=== PATIENT | male | born 1975 | race Caucasian/White ===

== ENCOUNTER → 2019-07-11 | Outpatient (CLI) | payer BC | LOC: LAB 07:53 | PROVIDERS: ATTEND Registered Nurse | DX: Z01.818 Encounter for other preprocedural examination (principal); Z11.59 Encounter for screening for other viral diseases | CPT/HCPCS: C9803; U0003 ==

== ENCOUNTER → 2019-07-15 | Day surgery (SDC) | payer BC ==
[~2019-07-15] MED LIST: IPRATRPIUM/ALBUTEROL 0.5/2.5MG 3 ML NEBU. NEB PRN; IV RINGERS SOLUTION,LACTATED 1,000 ML IV SCH; ONDANSETRON PF 4 MG/2 ML VIAL. IV PRN; PROPOFOL 10,000 MCG/ML (20ML) VIAL IV ONE
[2019-07-15 08:40] VITALS: BP 110/81
--- NOTE | 2019-07-16 17:06 | PATHOLOGY ---
[facility] Accession Number: [id number] . 01 Material submitted: . PART A: stomach - RANDOM GASTRIC PART B: colon - COLON BIOPSY AT 30CM PART C: colon - SIGMOID COLON POLYP. Modifiers: sigmoid . 02 Diagnosis: A. Gastric body and gastric antral mucosa, random gastric biopsies: - Very mild chronic antral gastritis. . B. Colonic mucosa, colon biopsy at 30 cm: - Focal mild nonspecific colitis. . C. Colon biopsies, sigmoid colon polyps: - Tubular adenomas (2). . (JPM:ifrah; 07/16/2019) [facility] 07/16/2019 1632 Local . 02 Comment: Sections of the random gastric biopsy reveal segments of gastric body and gastric antral mucosa. The gastric body mucosa shows focal superficial mucosal congestion and minimal chronic inflammation. The gastric antral mucosa shows focal congestion and very mild chronic inflammation. A properly-controlled immunoperoxidase stain for Helicobacter is negative for Helicobacter organisms. . Sections of the colon biopsy at 30 cm reveal two segments of colonic mucosa. One of the segments shows a mild increase of chronic inflammatory cells within the lamina propria. here are admixed eosinophils and occasional neutrophils. There is focal recent hemorrhage within the lamina propria. There is no crypt architectural distortion or crypt abscesses. The findings may represent diverticular-associated inflammation. There is no evidence of a chronic destructive colitis. . Sections of the sigmoid colon biopsy reveal two tubular adenomas showing no high grade dysplasia or evidence of malignancy. The larger of the two polyps appears to be pedunculated. The base of the pedicle is lined by normal colonic mucosa. . Special stain: Immunoperoxidase stain for Helicobacter on A1. . (JPM:mmmaynor; 07/16/2019) . 02 Electronically signed: . Lobo Faria MD, Pathologist NPI- [id number] . 01 Gross description: . A. The specimen is received in formalin labeled "Kilo Edwards, random gastric" and consists of multiple fragments of olve-brown tissue measuring 1.8 x 0.5 x 0.2 cm in aggregate which are entirely submitted in A1. . B. The specimen is received in formalin labeled "Edwards, Kilo, colon BX at 30 cm" and consists of a fragment of love brown tissue measuring 0.3 x 0.2 x 0.2 cm which is entirely submitted in B1. . C. The specimen is received in formalin labeled "Edwards, Kilo, sigmoid colon polyp" and consists of 2 polypoid segments of pink-love tissue measuring 0.7 x 0.5 x 0.3 cm and 1.6 x 0.6 x 0.6 cm. The margins are inked. They are trisected and entirely submitted in C1-C2. (JOSE; 07/15/2019) JFQ/JFQ 07/15/2019 1737 Local . 02 Pathologist provided ICD-10: K29.50, K52.9, D12.5 . 02 CPT . 240589, 339855, [id number], [id number] Specimen Comment: A courtesy copy of this report has been sent to [phone], [phone] Specimen Comment: [id number] Specimen Comment: Report sent to / DR CHILDRESS Performed at: 01 [facility] [address], [place] [id number] MD Trey Sadler MD Phone: [phone] Performed at: 02 [facility] [address] [place], [place] [id number] MD Lobo Faria MD Phone: [phone]
== END | disposition home or self-care (01) ==
LOC: SURG 06:13
PROVIDERS: ATTEND Internal Medicine Gastroenterology
DX: Z12.11 Encounter for screening for malignant neoplasm of colon (principal); D12.5 Benign neoplasm of sigmoid colon; K29.50 Unspecified chronic gastritis without bleeding; K52.9 Noninfective gastroenteritis and colitis, unspecified; K21.9 Gastro-esophageal reflux disease without esophagitis; Z80.0 Family history of malignant neoplasm of digestive organs
CPT/HCPCS: 43239; 45380; 45385; 88305; 88342; J2704; J7120; U0003-CS